=== PATIENT | female | born 1990 | race Caucasian/White ===

== ENCOUNTER 2024-03-30 21:49 | Emergency (ER) | payer OTHER ==
[2024-03-30] MEDS: Dexamethasone 4 MG/ML 5 ML MDV PO ONE (22:29)
== END 2024-03-30 23:30 | disposition home or self-care (01) ==
LOC: JD.ED 21:49
DX: T78.49XA Other allergy, initial encounter (principal); J45.909 Unspecified asthma, uncomplicated
CPT/HCPCS: 99283; J8540